=== PATIENT | male | born 1985 | race Caucasian/White ===

== ENCOUNTER 2017-12-04 05:04 | Emergency (ER) | payer BC ==
[2017-12-04 05:19] VITALS: BP 146/94; PULSE 65; RESP 16; TEMP 98.3
--- NOTE | 2017-12-04 05:51 | XR ---
EXAMINATION TYPE: XR hand complete RT DATE OF EXAM: 12/04/2017 COMPARISON: NONE HISTORY: Right hand pain TECHNIQUE: 3 views FINDINGS: Metacarpals are intact. I see no fracture nor dislocation. Joint spaces are normal. IMPRESSION: Negative right hand exam.
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
== END 2017-12-04 06:14 | disposition home or self-care (01) ==
LOC: EC 05:04
DX: S62.101A Fracture of unspecified carpal bone, right wrist, initial encounter for closed fracture (principal); S60.221A Contusion of right hand, initial encounter; E78.5 Hyperlipidemia, unspecified; F32.9 Major depressive disorder, single episode, unspecified; F17.200 Nicotine dependence, unspecified, uncomplicated; Z79.899 Other long term (current) drug therapy; W22.8XXA Striking against or struck by other objects, initial encounter; Y93.55 Activity, bike riding; Y92.89 Other specified places as the place of occurrence of the external cause
CPT/HCPCS: 29125; 99283

== ENCOUNTER → 2023-03-16 | Outpatient (CLI) | payer BC ==
--- NOTE | 2023-03-16 11:39 | XR ---
EXAMINATION TYPE: XR KUB DATE OF EXAM: 03/16/2023 11:27 AM CLINICAL INDICATION:Male, 37 years old with history of N200 CALC OF KIDNEY; [facility] COMPARISON: None. TECHNIQUE: One radiographic view of the abdomen was obtained. FINDINGS: Right calcification density measuring 4 mm near the expected location of the distal uretero vesicular junction. The bowel gas pattern is nonspecific without dilated loops of small or large brenda l. There is no evidence for organomegaly or pneumoperitoneum. The osseous structures are intact. F ecal material and gas are demonstrated throughout the colon and rectum. IMPRESSION: Calcific density near the bladder could represent distal ureteral calculus measuring 4 mm. No additio nal calculi visualized.
== END | disposition home or self-care (01) ==
LOC: RADXRYALE 11:17
PROVIDERS: ATTEND Internal Medicine
DX: N20.0 Calculus of kidney (principal); N32.89 Other specified disorders of bladder
CPT/HCPCS: 74018

== ENCOUNTER → 2023-10-24 | Outpatient (CLI) | payer BC ==
--- NOTE | 2023-10-24 09:33 | US ---
EXAMINATION TYPE: US abdomen complete DATE OF EXAM: 10/24/2023 COMPARISON: NONE CLINICAL INDICATION: Male, 37 years old with history of R10.9 UNSPECIFIED ABDOMINAL PAIN; watery whit e diarrhea, very gassy, RUQ pain TECHNIQUE: Multiple sonographic images of the abdomen are obtained. FINDINGS: EXAM MEASUREMENTS: Liver Length: 18.5 cm Gallbladder Wall: 0.2 cm CBD: 0.7 cm Spleen: 13.5 cm Right Kidney: 11.1 x 5.5 x 5.2 cm Left Kidney: 11.8 x 3.9 x 5.4 cm [employer] NOTES: bowel gas obscures views Pancreas: wnl Liver: difficult to penetrate, upper limits of normal Gallbladder: Layering biliary sludge suggested on a few images. Evidence for sonographic Diaz's sign: no CBD: wnl Spleen: enlarged Right Kidney: wnl Left Kidney: wnl Upper IVC: wnl Abd Aorta: mid and distal gassed out The liver is homogenous increased echotexture. The intrahepatic portion of the IVC and proximal abdo monica aorta are within normal limits. There is no evidence of cholelithiasis low level echoes layeri ng dependently are thought to be present. Common bile duct is unremarkable. The visualized portions of the pancreas are homogenous. The spleen is unremarkable. Kidneys are symmetric and free of hydr onephrosis. No renal lesions are seen. IMPRESSION: 1. No evidence for acute process. 2. Hepatic steatosis. 3. Biliary sludge.
== END | disposition home or self-care (01) ==
LOC: RADUSWWP 06:54
PROVIDERS: ATTEND Internal Medicine
DX: K76.0 Fatty (change of) liver, not elsewhere classified (principal); K83.8 Other specified diseases of biliary tract; R19.7 Diarrhea, unspecified
CPT/HCPCS: 76700